=== PATIENT | male | born 1985 ===

== ENCOUNTER 2023-12-10 10:42 | Outpatient (REF) | payer BC, SELFPAY ==
[2023-12-10 15:02] LABS: Absolute Basophil Count 0.04 10^3/uL (0.0-0.2); Absolute Eosinophil Count 0.01 10^3/uL (0.0-0.7); Absolute Lymphocyte Count 1.31 10^3/uL (1.2-3.4); Absolute Monocyte Count 0.32 10^3/uL (0.1-0.8); Absolute Neutrophil Count 2.62 10^3/uL (1.2-6.7); Basophils % 0.9; Eosinophils % 0.2; HCT 46.9 % (40.0-50.0); HGB 16.4 g/dL (13.5-17.5); Lymphocytes % 30.5; MCH 30.5 pg (27.0-33.0); MCV 87 fL (80-95); MPV 10.9 fL (8.0-11.0); Monocytes % 7.4; Platelet Count 183 10^3/uL (130-400); RBC 5.37 10^6/uL (4.36-5.78); RDW 12.3 % (11.8-14.1)
[2023-12-10 15:39] LABS: ALT 56 U/L (16-63); AST 32 U/L (15-37); Albumin 4.5 g/dL (3.4-5.0); Alkaline Phosphatase 48 U/L (46-116); Anion Gap 8.9 mmol/L (3-11); BUN 15 mg/dL (7-18); Bilirubin, Total 0.7 mg/dL (0.2-1.0); CO2 29.1 mmol/L (21.0-32.0); Calcium 9.4 mg/dL (8.5-10.1); Chloride 105 mmol/L (98-107); Estimated GFR 97.58 (mL/min/1.73m2); Glucose 100 mg/dL (74-106); Potassium 4.4 mmol/L (3.5-5.1); Sodium 143 mmol/L (136-145); TSH (W/Ref FT4) 2.72 uIU/mL (0.36-3.74); Total Protein 7.6 g/dL (6.4-8.2)
[2023-12-10 16:15] LABS: Hemoglobin A1C 5.7 % (<5.7)
== END 2023-12-10 10:43 | disposition home or self-care (01) ==
LOC: NCHCN 10:42
PROVIDERS: Visit Provider Student in an Organized Health Care Education/Training Program
DX: R63.1 Polydipsia (principal); R53.83 Other fatigue; Z13.1 Encounter for screening for diabetes mellitus
CPT/HCPCS: 80053; 83036; 84443; 85025